=== PATIENT | male | born 1950 | race Caucasian/White ===

== ENCOUNTER 2017-04-13 22:58 | Emergency (ER) | payer OTHER ==
[~2017-04-13] VITALS: Ht 175.3 cm; Wt 88.7 kg
[2017-04-13 23:02] VITALS: TEMP 36.7; Ht 175.3 cm; Wt 88.7 kg
[2017-04-13] MEDS ORDERED: ADENOSINE IV SOLN 3 MG/ML 2 ML VIAL ONE (23:12)
[2017-04-13] MEDS ORDERED: SODIUM CHLORIDE 0.9% 1000ML 1,000 ML IV STA (23:19)
[2017-04-13] MEDS ORDERED: DILTIAZEM HCL 5 MG/ML 5 ML VIAL IV STA (23:19)
[2017-04-13] MEDS ORDERED: ASPIRIN 324 MG CHEW PO STA (23:19)
--- NOTE | 2017-04-13 23:20 | EMERGENCY ROOM VISIT NOTE ---
History Report prepared by Neel: Vimal Echeverria Under the Supervision of: Dr. Anival Bingham M.D. First contact with patient: 23:05 Chief Complaint: CARDIAC ASSESSMENT Stated Complaint: RAPID HEART BEAT History of Present Illness The patient is a 66 year old male who presents to the Emergency Room with complaints of constant tachycardia that began prior to arrival. Patient states that he was sitting and watching TV and not exerting himself when the symptoms came on. Patient has associated symptoms of nausea. He denies chest pain, calf pain, leg swelling, recent falls, or passing out. Patient states he took a baby aspirin 2 hours ago. He denies a history of atrial fibrillation or atrial flutter. Patient denies a history of blood clots, strokes, or DVTs. He denies a family history of blood clots. Patient denies recent alcohol use. Patient denies a history of heart problems. Source of History: patient Onset: Prior to arrival Modifying Factors (Relieving): other (None) Associated Symptoms: + nausea, No LOC, No chest pain Note: He denies calf pain, leg swelling, recent falls, or passing out. Review of Systems See HPI for pertinent positives & negatives. A total of 10 systems reviewed and were otherwise negative. Past Medical & Surgical Medical Problems: (1) High cholesterol Family History Omitted secondary to age. Social History Smoking Status: Never Smoker Occupation Status: employed Physical Exam Vital Signs Date Time Temp Pulse Resp B/P (MAP) Pulse Ox O2 Delivery O2 Flow Rate FiO2 04/14/17 00:35 71 20 96 04/14/17 00:31 107/74 04/14/17 00:05 68 17 95 04/14/17 00:00 104/69 04/13/17 23:40 71 04/13/17 23:37 106/71 04/13/17 23:35 74 15 98 04/13/17 23:31 98/70 04/13/17 23:29 144 19 94/76 96 Room Air 04/13/17 23:27 145 04/13/17 23:24 98 Room Air 04/13/17 23:22 98 Room Air 04/13/17 23:16 150 04/13/17 23:02 36.7 157 18 111/77 96 Room Air Physical Exam GENERAL: Patient is mildly dehydrated appearing and in no acute distress. HEENT: No acute trauma, normocephalic atraumatic, mucous membranes dry, no nasal congestion, no scleral icterus. NECK: No stridor, no adenopathy, no meningismus, trachea is midline. LUNGS: No dyspnea. Clear to auscultation and equal bilaterally. No wheeze, no rhonchi. HEART: Tachycardic and steady at 150. No murmurs, rubs, gallops appreciated. ABDOMEN: Soft, nontender, bowel sounds positive, no masses appreciated, no peritonitis. BACK: No midline tenderness, no CVA tenderness EXTREMITIES: Normal motion all extremities, no cyanosis, no edema. NEUROLOGIC: Alert and oriented, no acute motor or sensory deficits, no focal weakness, cranial nerves grossly intact. SKIN: No rash, no jaundice, no diaphoresis. Medical Decision & Procedures ER Provider Diagnostic Interpretation: X ray results are stated below per my interpretation: Chest: 1 view: No infiltrate, no effusion, normal cardiac border. Laboratory Results 04/13/17 23:10 Red Blood Count 5.27, Mean Corpuscular Volume 88.6, Mean Corpuscular Hemoglobin 31.3, Mean Corpuscular Hemoglobin Concent 35.3, Mean Platelet Volume 11.9, Neutrophils (%) (Auto) 53.9, Lymphocytes (%) (Auto) 32.2, Monocytes (%) (Auto) 11.5, Eosinophils (%) (Auto) 1.9, Basophils (%) (Auto) 0.4, Neutrophils # (Auto ) 4.50, Lymphocytes # (Auto) 2.69, Monocytes # (Auto) 0.96, Eosinophils # (Auto ) 0.16, Basophils # (Auto) 0.03 04/13/17 23:10 Test 04/13/17 23:10 04/14/17 00:30 White Blood Count 8.35 K/uL (4.8-10.8) Red Blood Count 5.27 M/uL (4.7-6.1) Hemoglobin 16.5 g/dL (14.0-18.0) Hematocrit 46.7 % (42-52) Mean Corpuscular Volume 88.6 fL (80-100) Mean Corpuscular Hemoglobin 31.3 pg (25-34) Mean Corpuscular Hemoglobin Concent 35.3 g/dl (32-36) Platelet Count 146 K/uL (130-400) Mean Platelet Volume 11.9 fL (7.4-10.4) Neutrophils (%) (Auto) 53.9 % Lymphocytes (%) (Auto) 32.2 % Monocytes (%) (Auto) 11.5 % Eosinophils (%) (Auto) 1.9 % Basophils (%) (Auto) 0.4 % Neutrophils # (Auto) 4.50 K/uL (1.4-6.5) Lymphocytes # (Auto) 2.69 K/uL (1.2-3.4) Monocytes # (Auto) 0.96 K/uL (0.11-0.59) Eosinophils # (Auto) 0.16 K/uL (0-0.5) Basophils # (Auto) 0.03 K/uL (0-0.2) RDW Standard Deviation 42.5 fL (36.4-46.3) RDW Coefficient of Variation 13.2 % (11.5-14.5) Immature Granulocyte % (Auto) 0.1 % Immature Granulocyte # (Auto) 0.01 K/uL (0.00-0.02) Prothrombin Time 10.9 SECONDS (9.0-12.0) Prothromb Time International Ratio 1.0 (0.9-1.1) Activated Partial Thromboplast Time 26.5 SECONDS (21.0-31.0) Partial Thromboplastin Ratio 1.0 Anion Gap 5.0 mmol/L (3-11) Est Creatinine Clear Calc Drug Dose 82.0 ml/min Estimated GFR () 92.2 Estimated GFR (Non- 79.6 BUN/Creatinine Ratio 17.2 (10-20) Calcium Level 9.1 mg/dl (8.5-10.1) Magnesium Level 2.2 mg/dl (1.8-2.4) Total Creatine Kinase 611 U/L (39-308) Creatine Kinase MB 9.3 ng/ml (0.5-3.6) Creatine Kinase MB Ratio 1.5 (0-3.0) Troponin I < 0.015 ng/ml (0-0.045) Thyroid Stimulating Hormone (TSH) 3.220 uIu/ml (0.300-4.500) Bedside Glucose 133 mg/dl (70-99) Laboratory results as reviewed by me. Medications Administered Medications (Trade) Dose Ordered Sig/Devan Route Start Time Stop Time Status Last Admin Dose Admin Adenosine (Adenosine Iv) 18 mg STK-MED ONCE .ROUTE 04/13/17 23:12 04/13/17 23:13 DC 04/13/17 23:21 6 MG Sodium Chloride 1,000 ml @ 999 mls/hr Q1H1M STAT IV 04/13/17 23:19 04/14/17 00:19 DC 04/13/17 23:22 999 MLS/HR Aspirin (Aspirin Chew) 324 mg NOW STAT PO 04/13/17 23:19 04/13/17 23:21 DC 04/13/17 23:29 324 MG ECG Indication: tachycardia Rate (beats per minute): 153 Rhythm: SVT (vs flutter) Findings: no acute ischemic change, prolonged QT (of 536) Comparison ECG Date: no prior available Change: Repeat EKG: Normal sinus at 71 with no ectopy, no ischemia, QTC of 397, compared to previous patient is now in normal sinus rhythm. EKG: Electrocardiogram per my interpretation. ED Course 2308: The patient was evaluated in room B11B. A complete history and physical exam was performed. 2312: Adenosine 18mg .ROUTE 2319: Aspirin 324mg PO, Diltiazem HCl 15mg IV, Sodium Chloride 1000 ml @ 999 mls /hr IV 2340: Patient states that he feels much better and denies any current palpitations. 0046: Reevaluated the patient. Discussed results and discharge instructions. He verbalized understanding and agreement. The patient is ready for discharge. Medical Decision Differential: NSR, SVT, PACs, PVCs, Cardiac Dysrhythmia, Endocrine Dysfunction, Eletrolyte/Metabolic Abnormality, Pulmonary Embolism, Infectious, GI, amongst other pathologies entertained. Very pleasant 66 yr old male arrives with palpitations and lightheadedness without significant chest discomfort, syncope, stroke like symptoms, nor other symptoms. Tachy at 150s which was confirmed aflutter with 6mg IV Adensine. With dehydration and mild hypotension given 1 L NSS bolus with spontaneous conversion to NSR without Cardizem ever being given. Patient feeling fine with resolution of symptoms. Work-up benign other than elevated CK consistent with exertion throughout the day which combined with his dehydration I suspect is cause of flip to Aflutter. Will continue his daily 81mg ASA and stressed PCP/ Cards follow up. Hold on rate meds given back in NSR, baseline lower BP, and single episode with planned Cards follow up. No stroke like symptoms nor other concerns. Discussed risks of stroke from arrhythmias with him. Reviewed symptoms requiring immediate return to ED. Stable and feeling well at discharge. Medication Reconcilliation Current Medication List: was personally reviewed by me Blood Pressure Screening Patient's blood pressure: Normal blood pressure Blood pressure disposition: Did not require urgent referral Consults Time Called: 0034 Consulting Physician: Dr. Adam - [facility] Returned Call: 0035 Discussed the patient's case. Dr. Adam agrees with discharge and a home aspirin regimen. He states that the patient shoudl follow up with his PCP/ [facility] in the next few days. The patient will be evaluated for further treatment and disposition. Impression Primary Impression: Atrial flutter with rapid ventricular response Additional Impression: Dehydration Scribe Attestation The scribe's documentation has been prepared under my direction and personally reviewed by me in its entirety. I confirm that the note above accurately reflects all work, treatment, procedures, and medical decision making performed by me. Departure Information Dispostion Home / Self-Care Referrals No Doctor, Assigned (PCP) Patient Instructions Atrial Flutter, My [facility] Additional Instructions It is important you follow up with your Primary Care Provider or [facility] in the next few days. Return immediately or call 911 if you develop chest pain, difficulty breathing, passing out, or stroke like symptoms. Keep well hydrated and avoid excessive exertion over the next few days. Take an Aspirin 81mg daily until seen by your PCP or [facility]. Problem Qualifiers
[2017-04-13 23:22] VITALS: O2SAT 98
[2017-04-13 23:36] LABS: BASO % 0.4 %; BASO ABS # 0.03 K/uL (0-0.2); EOS % 1.9 %; EOS ABS # 0.16 K/uL (0-0.5); HEMATOCRIT 46.7 % (42-52); HEMOGLOBIN 16.5 g/dL (14.0-18.0); IG# 0.01 K/uL (0.00-0.02); LYMPH % 32.2 %; LYMPH ABS # 2.69 K/uL (1.2-3.4); MEAN CELL VOLUME 88.6 fL (80-100); MEAN CORPUSCULAR HEMOGLOBIN 31.3 pg (25-34); MEAN CORPUSCULAR HGB CONC 35.3 g/dl (32-36); MEAN PLATELET VOLUME 11.9 fL (7.4-10.4); MONO % 11.5 %; MONO ABS # 0.96 K/uL (0.11-0.59); NEUT % 53.9 %; PLATELET COUNT 146 K/uL (130-400); RED CELL DISTRIBUTION WIDTH CV 13.2 % (11.5-14.5); RED CELL DISTRIBUTION WIDTH SD 42.5 fL (36.4-46.3); WHITE BLOOD COUNT 8.35 K/uL (4.8-10.8)
[2017-04-13 23:55] LABS: BLOOD UREA NITROGEN 17 mg/dl (7-18); CALCIUM 9.1 mg/dl (8.5-10.1); CARBON DIOXIDE 28 mmol/L (21-32); CREATININE 0.99 mg/dl (0.60-1.40); GLUCOSE 61 mg/dl (70-99); POTASSIUM 3.8 mmol/L (3.5-5.1); SODIUM 142 mmol/L (136-145)
[2017-04-14 00:03] LABS: PTT PATIENT 26.5 SECONDS (21.0-31.0)
[2017-04-14 00:15] LABS: CKMB 9.3 ng/ml (0.5-3.6)
[2017-04-14 00:31] VITALS: BP 107/74
[2017-04-14 00:35] VITALS: PULSE 71; O2SAT 96
--- NOTE | 2017-04-14 05:32 | DIAGNOSTIC IMAGING REPORT ---
CHEST ONE VIEW PORTABLE CLINICAL HISTORY: 66 years-old Male presenting with Chest Pain. TECHNIQUE: Portable upright AP view of the chest was obtained. COMPARISON: None. FINDINGS: Cardiomediastinal silhouette normal. Lungs and pleural spaces clear. Osseous structures normal. Upper abdomen normal. IMPRESSION: 1. No acute cardiopulmonary disease. Electronically signed by: Mahesh Brothers M.D. 04/14/2017 5:30 AM Dictated Date/Time: 04/14/2017 5:30 AM
== END 2017-04-14 00:58 | disposition home or self-care (01) ==
LOC: C.EDB 23:00
DX: I48.92 Unspecified atrial flutter (principal); E86.0 Dehydration; E78.00 Pure hypercholesterolemia, unspecified